=== PATIENT | male | born 1980 | race Caucasian/White ===

== ENCOUNTER 2021-07-11 17:41 | Outpatient (REF) | payer OTHER, SELFPAY ==
[2021-07-11 19:30] LABS: Abs Immature Grans 0.02 10^3/uL (0.0-0.06); Absolute Basophil Count 0.04 10^3/uL (0.0-0.2); Absolute Eosinophil Count 0.18 10^3/uL (0.0-0.7); Absolute Lymphocyte Count 1.87 10^3/uL (1.2-3.4); Absolute Monocyte Count 0.49 10^3/uL (0.1-0.8); Absolute Neutrophil Count 3.24 10^3/uL (1.2-6.7); Basophils % 0.7; Eosinophils % 3.1; HCT 46.1 % (40.0-50.0); HGB 15.1 g/dL (13.5-17.5); Immature Grans % 0.3; MCH 28.1 pg (27.0-33.0); MCHC 32.8 % (32.0-36.0); MCV 85.8 fL (80-95); MPV 10.7 fL (8.0-11.0); Monocytes % 8.4; Neutrophils % 55.5; Nucleated RBC 0 %; Platelet Count 242 10^3/uL (130-400); RBC 5.37 10^6/uL (4.36-5.78); RDW-SD 40.3 fL; WBC 5.84 10^3/uL (4.4-10.8)
[2021-07-11 19:39] LABS: ALT 97 U/L (16-63); AST 52 U/L (15-37); Albumin 3.9 g/dL (3.4-5.0); Alkaline Phosphatase 67 U/L (46-116); Anion Gap 12.7 mmol/L (3-11); BUN 17 mg/dL (7-18); Bilirubin, Total 0.3 mg/dL (0.2-1.0); CO2 25.3 mmol/L (21.0-32.0); CREATININE 0.8 mg/dL (0.70-1.30); Calcium 9.1 mg/dL (8.5-10.1); Calculated LDL 131 mg/dL (<100); Chloride 101 mmol/L (98-107); Cholesterol 231 mg/dL (<200); Glucose 107 mg/dL (74-106); HDL Cholesterol 60 mg/dL (40-60); Potassium 4.4 mmol/L (3.5-5.1); Sodium 139 mmol/L (136-145); Total Protein 8.1 g/dL (6.4-8.2); Triglyceride 202 mg/dL (<150)
[2021-07-11 19:52] LABS: Hemoglobin A1C 6.1 % (<5.7)
== END 2021-07-11 17:42 | disposition home or self-care (01) ==
LOC: NCHCN 17:41
PROVIDERS: Visit Provider Physician Assistant Medical
DX: Z00.8 Encounter for other general examination (principal)
CPT/HCPCS: 80053; 80061; 83036; 85025

== ENCOUNTER 2021-08-01 16:16 | Outpatient (REF) | payer OTHER, SELFPAY ==
[2021-08-03 10:12] LABS: Hepatitis C Ab w Rflx HCV PCR Negative (Negative)
== END 2021-08-01 16:17 | disposition home or self-care (01) ==
LOC: NCHCN 16:16
PROVIDERS: PCP Physician Assistant Medical; Visit Provider Physician Assistant Medical
DX: R79.89 Other specified abnormal findings of blood chemistry (principal)
CPT/HCPCS: 86803

== ENCOUNTER 2022-02-26 15:03 | Outpatient (REF) | payer OTHER, SELFPAY ==
[2022-02-26 18:05] LABS: HGB 15.2 g/dL (13.5-17.5); MCH 28.1 pg (27.0-33.0); MCV 85 fL (80-95); MPV 10.7 fL (8.0-11.0); Platelet Count 231 10^3/uL (130-400); RBC 5.41 10^6/uL (4.36-5.78); RDW 12.8 % (11.8-14.1); RDW-SD 39.1 fL; WBC 6.54 10^3/uL (4.4-10.8)
[2022-02-26 18:16] LABS: ALT 61 U/L (16-63); AST 34 U/L (15-37); Albumin 3.6 g/dL (3.4-5.0); Alkaline Phosphatase 54 U/L (46-116); Anion Gap 8.4 mmol/L (3-11); BUN 17 mg/dL (7-18); Bilirubin, Total 0.3 mg/dL (0.2-1.0); CO2 26.6 mmol/L (21.0-32.0); CREATININE 0.9 mg/dL (0.70-1.30); Chloride 103 mmol/L (98-107); Estimated GFR 110.04 (mL/min/1.73m2); Glucose 107 mg/dL (74-106); Potassium 4.4 mmol/L (3.5-5.1); Sodium 138 mmol/L (136-145); Total Protein 8.1 g/dL (6.4-8.2)
[2022-02-26 19:13] LABS: Hemoglobin A1C 6.1 % (<5.7)
== END 2022-02-26 15:04 | disposition home or self-care (01) ==
LOC: NCHCN 15:03
PROVIDERS: PCP Physician Assistant Medical; Visit Provider Physician Assistant Medical
DX: I10 Essential (primary) hypertension (principal); R73.03 Prediabetes; R79.89 Other specified abnormal findings of blood chemistry
CPT/HCPCS: 80053; 85027; 83036

== ENCOUNTER 2023-08-14 18:00 | Outpatient (REF) | payer OTHER, SELFPAY ==
[2023-08-14 16:10] LABS: HCT 44.4 % (40.0-50.0); HGB 15.2 g/dL (13.5-17.5); MCH 28.5 pg (27.0-33.0); MCHC 34.2 % (32.0-36.0); MCV 83 fL (80-95); MPV 10.5 fL (8.0-11.0); Platelet Count 231 10^3/uL (130-400); RBC 5.34 10^6/uL (4.36-5.78); RDW 12.8 % (11.8-14.1); RDW-SD 38.9 fL
[2023-08-14 16:55] LABS: Hemoglobin A1C 6.2 % (<5.7)
[2023-08-14 17:14] LABS: ALT 58 U/L (16-63); AST 32 U/L (15-37); Albumin 3.5 g/dL (3.4-5.0); Alkaline Phosphatase 61 U/L (46-116); Anion Gap 12.2 mmol/L (3-11); BUN 15 mg/dL (7-18); Bilirubin, Total 0.4 mg/dL (0.2-1.0); CO2 25.8 mmol/L (21.0-32.0); CREATININE 0.9 mg/dL (0.70-1.30); Calculated LDL 106 mg/dL (<100); Chloride 103 mmol/L (98-107); Cholesterol 208 mg/dL (<200); Estimated GFR 108.68 (mL/min/1.73m2); Glucose 188 mg/dL (74-106); HDL Cholesterol 62 mg/dL (40-60); Sodium 141 mmol/L (136-145); Total Protein 7.8 g/dL (6.4-8.2); Triglyceride 203 mg/dL (<150)
== END 2023-08-14 18:01 | disposition home or self-care (01) ==
LOC: NCHCN 18:00
PROVIDERS: PCP Physician Assistant Medical; Visit Provider Physician Assistant Medical
DX: R73.03 Prediabetes (principal); K76.0 Fatty (change of) liver, not elsewhere classified; R79.89 Other specified abnormal findings of blood chemistry; Z13.6 Encounter for screening for cardiovascular disorders
CPT/HCPCS: 80053; 80061; 85027; 83036

== ENCOUNTER 2024-08-17 13:49 | Outpatient (REF) | payer OTHER, SELFPAY ==
[2024-08-17 15:07] LABS: Abs Immature Grans 0.02 10^3/uL (0.0-0.06); Absolute Basophil Count 0.05 10^3/uL (0.0-0.2); Absolute Eosinophil Count 0.14 10^3/uL (0.0-0.7); Absolute Lymphocyte Count 2.27 10^3/uL (1.2-3.4); Absolute Monocyte Count 0.53 10^3/uL (0.1-0.8); Basophils % 0.8 %; Eosinophils % 2.2 %; HCT 45.8 % (40.0-50.0); HGB 15.2 g/dL (13.5-17.5); Immature Grans % 0.3 %; MCH 27.9 pg (27.0-33.0); MCHC 33.2 % (32.0-36.0); MCV 84 fL (80-95); MPV 9.9 fL (8.0-11.0); Monocytes % 8.4 %; Neutrophils % 52.3 %; Platelet Count 248 10^3/uL (130-400); RBC 5.45 10^6/uL (4.36-5.78); RDW 12.8 % (11.8-14.1); WBC 6.31 10^3/uL (4.4-10.8)
[2024-08-17 15:20] LABS: ALT 65 U/L (16-63); AST 32 U/L (15-37); Albumin 3.3 g/dL (3.4-5.0); Alkaline Phosphatase 70 U/L (46-116); Anion Gap 8.6 mmol/L (3-11); BUN 14 mg/dL (7-18); Bilirubin, Total 0.28 mg/dL (0.2-1.0); CO2 26.4 mmol/L (21.0-32.0); CREATININE 0.9 mg/dL (0.70-1.30); Calcium 8.8 mg/dL (8.5-10.1); Calculated LDL 91 mg/dL (<100); Chloride 105 mmol/L (98-107); Cholesterol 225 mg/dL (<200); Estimated GFR 108.01 (mL/min/1.73m2); Glucose 151 mg/dL (74-106); HDL Cholesterol 57 mg/dL (40-60); Potassium 4.2 mmol/L (3.5-5.1); Sodium 140 mmol/L (136-145); Total Protein 7.8 g/dL (6.4-8.2); Triglyceride 386 mg/dL (<150)
[2024-08-17 15:24] LABS: Hemoglobin A1C 6.6 % (<5.7)
== END 2024-08-17 13:50 | disposition home or self-care (01) ==
LOC: NCHCN 13:49
PROVIDERS: PCP Physician Assistant Medical; Visit Provider Physician Assistant Medical
DX: E11.9 Type 2 diabetes mellitus without complications (principal); I10 Essential (primary) hypertension
CPT/HCPCS: 80053; 80061; 83036; 85025

== ENCOUNTER 2024-11-17 08:46 | Outpatient (REF) | payer OTHER, SELFPAY ==
[2024-11-17 16:33] LABS: Anion Gap 8.6 mmol/L (3-11); BUN 17 mg/dL (7-18); CO2 26.4 mmol/L (21.0-32.0); CREATININE 0.9 mg/dL (0.70-1.30); Calcium 9.4 mg/dL (8.5-10.1); Chloride 104 mmol/L (98-107); Estimated GFR 108.01 (mL/min/1.73m2); Glucose 119 mg/dL (74-106); Potassium 4.3 mmol/L (3.5-5.1); Sodium 139 mmol/L (136-145)
[2024-11-17 16:44] LABS: Hemoglobin A1C 5.8 % (<5.7)
== END 2024-11-17 08:47 | disposition home or self-care (01) ==
LOC: NCHCN 08:46
PROVIDERS: PCP Physician Assistant Medical; Visit Provider Physician Assistant Medical
DX: E11.9 Type 2 diabetes mellitus without complications (principal)
CPT/HCPCS: 80048; 83036

== ENCOUNTER 2025-05-24 11:17 | Outpatient (REF) | payer OTHER, SELFPAY ==
[2025-05-24 16:15] LABS: Abs Immature Grans 0.01 10^3/uL (0.0-0.06); HCT 51.0 % (40.0-50.0); HGB 16.7 g/dL (13.5-17.5); Immature Grans % 0.2 %; MCH 27.6 pg (27.0-33.0); MCHC 32.7 % (32.0-36.0); MCV 84 fL (80-95); MPV 10.5 fL (8.0-11.0); Platelet Count 263 10^3/uL (130-400); RBC 6.06 10^6/uL (4.36-5.78); RDW 12.7 % (11.8-14.1); RDW-SD 38.9 fL; WBC 5.11 10^3/uL (4.4-10.8)
[2025-05-24 16:37] LABS: ALT 130 U/L (10-49); AST 73 U/L (<34); Albumin 4.7 g/dL (3.4-5.0); Alkaline Phosphatase 72 U/L (46-116); Anion Gap 11.1 mmol/L (3-11); BUN 17 mg/dL (9-23); Bilirubin, Total 0.80 mg/dL (0.2-1.2); CO2 24.9 mmol/L (20.0-31.0); Calcium 9.6 mg/dL (8.3-10.6); Chloride 105 mmol/L (98-107); Glucose 88 mg/dL (74-106); Potassium 4.6 mmol/L (3.5-5.1); Sodium 141 mmol/L (136-145); Total Protein 7.7 g/dL (5.7-8.2); Vitamin D 25 Total 31 ng/mL (30-100)
[2025-05-24 16:38] LABS: TSH (W/Ref FT4) 2.91 uIU/mL (0.55-4.78)
[2025-05-24 17:06] LABS: RBC Morphology Normal
== END 2025-05-24 11:18 | disposition home or self-care (01) ==
LOC: NCHCN 11:17
PROVIDERS: PCP Physician Assistant Medical; Visit Provider Physician Assistant Medical
DX: N52.9 Male erectile dysfunction, unspecified (principal); K76.0 Fatty (change of) liver, not elsewhere classified; F43.23 Adjustment disorder with mixed anxiety and depressed mood
CPT/HCPCS: 80053; 82306; 84403; 84443; 85025